=== PATIENT | female | born 1985 ===

== ENCOUNTER 2018-05-28 15:35 | Emergency (ER) | payer OTHER ==
[2018-05-28 15:54] VITALS: BP 111/72
[2018-05-28] MEDS ORDERED: Ibuprofen TAB* 600 MG PO ONE (16:33)
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
== END 2018-05-28 16:50 | disposition home or self-care (01) ==
LOC: UCEAST 15:35
DX: M54.5 Low back pain (principal); Z88.0 Allergy status to penicillin
CPT/HCPCS: 99212; A9270-GY; G0463